=== PATIENT | male | born 1960 | race Two or more races ===

== ENCOUNTER 2018-09-04 07:00 | Day surgery (SDC) | payer OTHER ==
[~2018-09-04] VITALS: Ht 172.7 cm; Wt 108.9 kg
[~2018-09-04 07:00] MED LIST: GABAPENTIN300 MG PO; IBRERSARTAN PO; LASIX20 MG PO; NAPROXIN PO; SERTRALINE HCL50 MG PO; VERAPAMIL ER240 MG PO
[2018-09-04] MEDS ORDERED: NAPROXEN500 M1 PO (08:17)
[2018-09-04] MEDS ORDERED: IRBESARTAN-HCT1 EACH PO (08:19)
== END 2018-09-04 13:00 | disposition home or self-care (01) ==
LOC: SURH 07:00 → CIR.AMB 07:00 → SURH 07:21 → O/R 07:21 → EDSTATUS 09:00 → SURH 09:00 → O/R 10:50 → CIR.AMB 13:00
DX: C61 Malignant neoplasm of prostate (principal); N40.1 Benign prostatic hyperplasia with lower urinary tract symptoms; N41.1 Chronic prostatitis

== ENCOUNTER 2018-11-01 08:30 | Inpatient (IN) | payer OTHER ==
[~2018-11-01] VITALS: Ht 172.7 cm; Wt 104.3 kg
[~2018-11-01 08:30] MED LIST changes: +IRBESARTAN-HCT1 EACH PO; +NAPROXEN500 M1 PO
== END 2018-11-08 11:36 | disposition home or self-care (01) | DRG 708 ==
LOC: SURH 11-06 05:35 → O/R 11-06 05:35 → SURH 11-06 07:00
PROVIDERS: ADMIT Urology
PROC: 07TC0ZZ Resection of Pelvis Lymphatic, Open Approach (ICD-10-PCS; 2018-11-06)
PROC: 0VT00ZZ Resection of Prostate, Open Approach (ICD-10-PCS; principal; 2018-11-06 07:00)
DX: C61 Malignant neoplasm of prostate (principal); N40.0 Benign prostatic hyperplasia without lower urinary tract symptoms; C67.9 Malignant neoplasm of bladder, unspecified